=== PATIENT | female | born 1985 | race African-American/Black ===

== ENCOUNTER 2017-04-16 17:47 | Emergency (ER) | payer OTHER ==
[2017-04-16] MEDS ORDERED: NO MEDICATIONS (17:50)
[2017-04-16 18:18] LABS: URINE SOURCE CLEAN CATCH
[2017-04-16 18:22] LABS: URINE APPEARANCE CLEAR; URINE BILIRUBIN NEG (NEG); URINE BLOOD 2+ (NEG); URINE COLOR YELLOW; URINE GLUCOSE NEG (NORM); URINE KETONE NEG (NEG); URINE LEUKOCYTE ESTERASE 1+ (NEG); URINE NITRATE NEG (NEG); URINE PH 5.5 (5-8); URINE PROTEIN TRACE (NEG); URINE SPECIFIC GRAVITY 1.025 (1.003-1.035)
[2017-04-16 18:23] LABS: MICRO INDICATED? YES
[2017-04-16 18:26] LABS: URINE BACTERIA 1+ (NEG); URINE MUCUS PRESENT; URINE SQUAMOUS EPITHELIAL CELL MODERATE /[HPF]
[2017-04-16] MEDS ORDERED: FLAGYL PO (19:03)
[2017-04-20 12:01] LABS: CHLAMYDIA TRACH Not Detected (Not Detected); N GONOR Not Detected (Not Detected)
== END 2017-04-16 19:03 | disposition home or self-care (01) ==
LOC: SED 17:47
PROVIDERS: Physician Assistant
DX: N76.0 Acute vaginitis (principal); Z98.51 Tubal ligation status
CPT/HCPCS: 81003; 87210; 87491; 87591; 87808; 87905; 99284